=== PATIENT | female | born 1960 | race Caucasian/White ===

== ENCOUNTER → 2020-04-29 | Outpatient (CLI) | payer MEDICARE ==
[~2020-04-29] MED LIST: ALPR1TAB6 PO; CARI350T14 PO; HYDR50TA99 PO; VENL75CA6 PO
== END | disposition home or self-care (01) ==
LOC: STAR 13:25
PROVIDERS: ATTEND Orthopaedic Surgery
DX: Z01.812 Encounter for preprocedural laboratory examination (principal); Z20.828 Contact with and (suspected) exposure to other viral communicable diseases; G56.03 Carpal tunnel syndrome, bilateral upper limbs
CPT/HCPCS: 36415; 87635; 93005

== ENCOUNTER 2020-05-04 09:18 | Day surgery (SDC) | payer MEDICARE ==
[~2020-05-04] VITALS: Ht 160 cm; Wt 110.1 kg
[2020-05-04] MEDS ORDERED: CHLORHEXIDINE 15 ML UDC MM STA (09:37)
[2020-05-04] MEDS ORDERED: LACTATED RINGERS 1,000 ML IV SCH (09:37)
[2020-05-04] MEDS ORDERED: MIDAZOLAM 1 MG/ML, 2ML ONE (09:49)
[2020-05-04] MEDS ORDERED: FENTANYL PF 100 MCG/2ML ONE (09:49)
[2020-05-04 09:50] VITALS: BP 111/82
[2020-05-04] MEDS ORDERED: OXYcodone 5 MG/5 ML ORAL.SOL UDC PO PRN (10:00)
[2020-05-04] MEDS ORDERED: MIDAZOLAM 1 MG/ML, 2ML IV PRN (10:00)
[2020-05-04] MEDS ORDERED: ACETAMINOPHEN 325 MG TABLET PO PRN (10:00)
[2020-05-04] MEDS ORDERED: FENTANYL PF 100 MCG/2ML IV PRN (10:00)
[2020-05-04] MEDS ORDERED: ONDANSETRON 2MG/ML, 2ML IVPush PRN (10:00)
[2020-05-04] MEDS ORDERED: BUPIVACAINE/PF 0.5% ONE (10:19)
[2020-05-04] MEDS ORDERED: LIDOCAINE-MPF 1%, 5ML ONE (10:20)
[2020-05-04] MEDS ORDERED: CEFAZOLIN 1,000 MG ONE (10:27)
[2020-05-04] MEDS ORDERED: LIDOCAINE-MPF 2% ,5ML ONE (10:41)
[2020-05-04] MEDS ORDERED: PROPOFOL 10 MG/ML, 20ML ONE (10:41)
[2020-05-04] MEDS ORDERED: ONDANSETRON 2MG/ML, 2ML ONE (10:55)
== END 2020-05-04 14:27 | disposition home or self-care (01) ==
LOC: OUT 09:18
PROVIDERS: ATTEND Orthopaedic Surgery
DX: G56.01 Carpal tunnel syndrome, right upper limb (principal); M19.90 Unspecified osteoarthritis, unspecified site; J44.9 Chronic obstructive pulmonary disease, unspecified; M79.7 Fibromyalgia; E66.01 Morbid (severe) obesity due to excess calories; Z68.41 Body mass index [BMI] 40.0-44.9, adult; Z88.8 Allergy status to other drugs, medicaments and biological substances; Z79.899 Other long term (current) drug therapy; Z87.891 Personal history of nicotine dependence; Z82.49 Family history of ischemic heart disease and other diseases of the circulatory system
CPT/HCPCS: 64721; J0690; J2250; J2405; J2704; J3010; J7120

== ENCOUNTER 2021-03-02 12:46 | Outpatient (CLI) | payer MEDICARE, MEDICAID ==
[~2021-03-02 12:46] MED LIST changes: +ALPR-585 PO; -ALPR1TAB6 PO; +CARI-389 PO; -CARI350T14 PO
== END 2021-03-02 23:59 | disposition home or self-care (01) ==
LOC: CFH 12:46
PROVIDERS: ATTEND Physician Assistant
DX: G44.85 Primary stabbing headache (principal)
CPT/HCPCS: 70450